=== PATIENT | male | born 1970 | race African-American/Black ===

== ENCOUNTER 2025-02-08 14:02 | Emergency (ER) | payer BC ==
[~2025-02-08] VITALS: Ht 180.3 cm; Wt 95.0 kg
[2025-02-08 14:05] VITALS: O2SAT 98
[2025-02-08 14:49] LABS: BASOPHILS % 1.5 % (0.0-2.0); DIFFERENTIAL COMMENT 0; EOSINOPHILS % 1.6 % (0.0-5.0); HEMATOCRIT. 36.7 % (42.0-52.0); HEMOGLOBIN. 11.9 g/dL (14.0-18.0); LYMPHOCYTES % 32.7 % (20.0-50.0); MEAN CORPUSCULAR HEMOGLOBIN 23.4 pg (28.0-32.0); MEAN CORPUSCULAR HGB CONC 32.4 g/dL (31.0-37.0); MEAN CORPUSCULAR VOLUME 72.3 fL (80.0-94.0); MEAN PLATELET VOLUME 9.3 fl (7.4-10.4); NEUTROPHILS % 54.2 % (40.0-76.0); PLATELET 199 x1000/uL (130-400); RED BLOOD CELL COUNT 5.07 mill/uL (4.7-6.1); RED CELL DISTRIBUTION WIDTH 17.1 % (11.6-14.6); WHITE BLOOD COUNT 6.6 x1000/uL (4.5-11.0)
[2025-02-08 14:58] LABS: CHLORIDE 104 mEq/L (98-107); POTASSIUM 4.2 mEq/L (3.5-5.1); SODIUM 140 mEq/L (136-145)
[2025-02-08 14:59] LABS: CALCIUM 9.2 mg/dL (8.7-10.4); CARBON DIOXIDE 26 mEq/L (21-32)
[2025-02-08 15:04] LABS: CREATININE 1.2 mg/dL (0.6-1.3); GLUCOSE 120 mg/dL (70-105); UREA NITROGEN BLOOD 11 mg/dL (9-23)
[2025-02-08 15:24] LABS: TROPONIN I HIGH SENSITIVITY 145 ng/L (3.0-53)
[2025-02-08] MEDS ORDERED: ASPIRIN 325MG EC TABLET PO ONE (15:30)
[2025-02-08] MEDS ORDERED: CLOPIDOGREL 75MG TABLET PO ONE (15:30)
[2025-02-08] MEDS ORDERED: ASPI-1406 MT (15:34)
[2025-02-08] MEDS ORDERED: CLOP-31 MT (15:35)
[2025-02-08 15:45] VITALS: BP 140/86; PULSE 99; RESP 19; TEMP 36.5; O2SAT 98
== END 2025-02-08 15:48 | disposition left against medical advice (07) ==
LOC: ER 14:02 → CANBEDREQ 15:41 → ER 15:48
DX: I21.4 Non-ST elevation (NSTEMI) myocardial infarction (principal); R00.2 Palpitations; E78.00 Pure hypercholesterolemia, unspecified; I10 Essential (primary) hypertension; Z79.82 Long term (current) use of aspirin
CPT/HCPCS: 80048; 83880; 83735; 85025; 84484; 36415; 71045; 93005; 99291; Z7610 ×2; A4606